=== PATIENT | female | born 1960 | race Caucasian/White ===

== ENCOUNTER 2016-10-28 14:20 | Emergency (ER) | payer MEDICAID, MEDICARE ==
[~2016-10-28 14:20] MED LIST: ALEN100T2 PO; AUGM875T PO; FLUT1SPR5 EACH NARE; GABA300C5 PO; IMIT50TA PO; INFL1INJ54 IM; MIRA25TA PO; NORC5TAB PO; PNEU25IN IM; PRAV20TA PO; VITA100064 PO; ZANA4CAP PO
[2016-10-28 14:22] VITALS: BP 142/65; PULSE 81; RESP 15; TEMP 97.7; O2SAT 97
--- NOTE | 2016-10-28 16:45 | PD ---
HPI Chief Complaint: ENT Complaint Time Seen by Provider: 16:40 Travel History International Travel<30 days: No Contact w/Intl Traveler<30days: No Traveled to known affect area: No History of Present Illness HPI 56-year-old female presents to the emergency Department with complaint of left ear pain that radiates to her jaw 3 weeks. She said she was sick with a cold and when her symptoms subsided she still had some ear pain. She thinks maybe she has an ear infection. Denies fever, chills, nausea, vomiting. Denies recent nasal congestion, cough, sore throat. Denies change in hearing. Denies drainage from the ear. Denies tooth pain. Says the pain is related jaw pain. Pain is aggravated with yawning, opening and closing her mouth. Has not taken any medications to alleviate her symptoms. Has used a small heating pad to the area with some relief. Has primary care provider. Allergies to tetanus toxoid and Ultram. No other modifying factors or associated signs and symptoms. History Past Medical Histgory Menopausal: Yes Hx Cancer: No Social History Alcohol Use: Yes ("OCCASIONALLY") Tobacco Use: Yes (1 PPD) Allergies-Medications (Allergen,Severity, Reaction): Coded Allergies: Tetanus Toxoid (Verified Allergy, Severe, Passes out , 10/28/16) Pt had allergic reaction in 1995 Ultram (Verified Adverse Reaction, Severe, headache, 10/28/16) Reported Meds & Prescriptions Reported Meds & Active Scripts Active Augmentin (Amoxicillin-Clavulanate) 875-125 mg Tab 875 Mg PO BID not for use in CrCl <30 ml/min. Alendronate (Alendronate Sodium) 10 Mg Tab 10 Mg PO DAILY Vitamin D (Cholecalciferol) 1,000 Unit Tab 1,000 Units PO DAILY Myrbetriq (Mirabegron) 25 Mg Tab 25 Mg PO DAILY Flonase Allergy Relief Nasal [place] (Fluticasone Nasal [place]) 50 Mcg/Act [place] 50 Mcg EACH NARE BID Pravachol (Pravastatin) 20 Mg Tab 20 Mg PO DAILY Gabapentin 300 Mg Cap 300 Mg PO HS Imitrex (Sumatriptan Succinate) 50 Mg Tab 50 Mg PO ONCE PRN If a satisfactory response has not been obtained at 2 hours, a second dose may be administered Reported Zanaflex (Tizanidine HCl) 4 Mg Cap 4 Mg PO Q8HR Wiggins (Hydrocodone-Acetaminophen) 5-325 mg Tab 1-2 Tab PO Q6H PRN Review of Systems Except as stated in HPI: all other systems reviewed are Neg Physical Exam Narrative GENERAL: Well-nourished, well-developed female patient, in no acute distress; afebrile, nontoxic-appearing SKIN: Warm and dry. No rash. HEAD: Atraumatic. Normocephalic. EYES: Pupils equal and round at 3 mm with brisk reaction. No scleral icterus. No injection or drainage. PERRLA. ENT: Mucosa pink and moist. No erythema or exudates. No uvular edema. No uvular , palatal, or tonsillar deviation. Airway patent. EARS: Bilateral pinnae and external canals appear within normal limits. Bilateral tympanic membranes without erythema, dullness or perforation. MOUTH: Mucous membranes moist, no lesions, tongue and gums appear normal. Left upper and lower teeth without tenderness on palpation. No clicking on palpation of the TMJ. NECK: Trachea midline. No lymphadenopathy. CARDIOVASCULAR: Regular rate. RESPIRATORY: No accessory muscle use. GASTROINTESTINAL: Flat. MUSCULOSKELETAL: No obvious deformities. No clubbing. No cyanosis. No edema. NEUROLOGICAL: Awake and alert. Oriented 3. No obvious cranial nerve deficits. Motor grossly within normal limits. Normal speech. Moves all extremities. 5/5 strength to all extremities. PSYCHIATRIC: Appropriate mood and affect; insight and judgment normal. Data Data Last Documented VS Vital Signs Date Time Temp Pulse Resp B/P Pulse Ox O2 Delivery O2 Flow Rate FiO2 10/28/16 14:22 97.7 81 15 142/65 97 MDM Medical Screen Exam Complete: Yes Emergency Medical Condition: No Differential Diagnosis Otitis media, otitis externa, cerumen impaction, dentalgia, TMJ Narrative Course 56-year-old female with left ear pain 3 weeks. Physical exam is unremarkable. The left tympanic membranes without signs of infection. There is no signs of otitis externa. The patient has no tooth pain on palpation to the left upper and lower teeth. No facial edema or erythema. No clicking on palpation of the TMJ. Patient speaking in full sentences and is able to open her mouth completely. I do not see any source that is the cause of the patient's ear pain. I instructed the patient to follow up outpatient with ENT. I offered the patient a prescription for a nonnarcotic and she declined at this time. Vital signs are stable and the patient is stable for outpatient follow-up and treatment. The patient has no urgent or emergent medical complaints. There is no emergent or urgent medical need at this time. I instructed the patient to follow up with their primary care provider. A medical screening exam was performed: At the time of evaluation the presenting medical condition was determined not to be of an emergent nature. The patient was given the option of receiving additional care, but declined. Patient was given options for additional community resources from which to obtain care. The Patient Has Been advised to seek medical attention for their presenting complaint. The patient has been advised to return to the ER at any time if an emergent condition develops. Primary Impression: Encounter for medical screening examination Condition: Stable Bertha Cisneros Oct 28, 2016 16:45
== END 2016-10-28 17:09 | disposition left against medical advice (07) ==
LOC: NEPB 14:20
DX: H92.02 Otalgia, left ear (principal); F17.210 Nicotine dependence, cigarettes, uncomplicated
CPT/HCPCS: 99281